=== PATIENT | female | born 1995 | race African-American/Black ===

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

== ENCOUNTER 2017-09-30 21:09 | Emergency (ER) | payer BC ==
[~2017-09-30] VITALS: Ht 157.5 cm; Wt 60.8 kg
[~2017-09-30 21:09] MED LIST changes: +BENADRYL25 M3 PO; +PREDNISONE20 MG ORAL
[2017-09-30] MEDS ORDERED: Sodium Chloride 500ML 500 ML IV ONE (21:22)
[2017-09-30] MEDS ORDERED: Morphine Sulfate 4mg/ml Inj IVP ONE (21:30)
[2017-09-30 21:58] LABS: BILIRUBIN, URINE NEGATIVE (NEGATIVE); GLUCOSE, URINE (UA) NEGATIVE (NEGATIVE); KETONES,URINE 1+ (NEGATIVE); LEUKOCYTE ESTERASE ,URINE 1+ (NEGATIVE); NITRITE,URINE NEGATIVE (NEGATIVE); PH,URINE 7 (4.5-8.0); PROTEIN,URINE 4+ (NEGATIVE); UROBILINOGEN,URINE NORMAL MG/DL (0.0-1.0)
[2017-09-30 22:00] LABS: APPEARANCE,URINE SLIGHTLY CLOUDY; COLOR,URINE RED
[2017-09-30 22:02] LABS: BASOPHILS % (AUTO) 1.1 % (0.0-2.0); EOSINOPHILS % (AUTO) 3.6 % (0.0-3.0); HEMATOCRIT 38.4 % (37.0-47.0); HEMOGLOBIN 12.2 G/DL (12.0-16.0); LYMPHOCYTES % (AUTO) 29.6 % (20.0-45.0); MEAN CORPUSCULAR VOLUME 88 FL (80-99); MONOCYTES % (AUTO) 12.1 % (1.0-10.0); NEUTROPHILS % (AUTO) 53.6 % (45.0-75.0); PLATELET COUNT 235 K/UL (150-450); RED BLOOD COUNT 4.38 M/UL (4.20-5.40); RED CELL DISTRIBUTION WIDTH 11.5 % (11.6-14.8); WHITE BLOOD COUNT 8.7 K/UL (4.8-10.8)
[2017-09-30 22:05] LABS: ANION GAP 8 mmol/L (5-15); BLOOD UREA NITROGEN 11 mg/dL (7-18); CALCIUM 7.8 MG/DL (8.5-10.1); CARBON DIOXIDE 27 MMOL/L (21-32); CHLORIDE 103 MMOL/L (98-107); CREATININE 0.6 MG/DL (0.55-1.30); POTASSIUM 3.8 MMOL/L (3.5-5.1); SODIUM 137 MMOL/L (136-145)
[2017-09-30 22:10] LABS: ALANINE AMINOTRANSFERASE 68 U/L (12-78); ALBUMIN 3.8 G/DL (3.4-5.0); ALBUMIN/GLOBULIN RATIO 1.2 (1.0-2.7); ALKALINE PHOSPHATASE 63 U/L (46-116); ASPARTATE AMINO TRANSFERASE 31 U/L (15-37); BILIRUBIN,TOTAL 0.4 MG/DL (0.2-1.0)
[2017-09-30] MEDS ORDERED: ACETAMINOPHEN-1 EAC1 ORAL (22:47)
[2017-09-30 22:55] VITALS: BP 122/75
--- NOTE | 2017-09-30 23:08 | Emergency Room Report ---
History of Present Illness General Chief Complaint: Complications Source: Patient Present Illness HPI 21-year-old female presents ED any abdominal pain and vaginal bleeding. States she is approximately 7 weeks . Had ultrasound done last week by her OB/ BLOCK BREAKER OPERATOR which confirmed a blighted ovum. Patient was scheduled to followup with her SHANK BURNISHER tomorrow. States she had increased abdominal pain vaginal bleeding starting today. Pain is a 5/10, sharp, nonradiating. Denies any nausea or vomiting. No other aggravating or leading factors. Denies any other associated symptoms Allergies: Uncoded Allergies: CITRUS (Adverse Reaction, Unknown, hives, 09/30/17) Patient History Past Medical History: none Past Surgical History: none Pertinent Family History: none Social History: Denies: smoking, alcohol use, drug use Last Menstrual Period: jun 2017 Now: Yes - 7 weeks : 2 Para: 0 Immunizations: UTD Reviewed Nursing Documentation: PMH: Agreed, PSxH: Agreed Nursing Documentation-PMH Past Medical History: No Stated History Review of Systems All Other Systems: negative except mentioned in HPI Physical Exam Vital Signs Date Time Temp Pulse Resp B/P (MAP) Pulse Ox O2 Delivery O2 Flow Rate FiO2 09/30/17 21:12 98.1 76 16 122/75 95 Room Air Sp02 EP Interpretation: reviewed, normal General Appearance: no apparent distress, alert, GCS 15, non-toxic Head: normocephalic, atraumatic Eyes: bilateral eye normal inspection, bilateral eye PERRL ENT: hearing grossly normal, normal pharynx, no angioedema, normal voice Neck: full range of motion, supple/symm/no masses Respiratory: chest non-tender, lungs clear, normal breath sounds, speaking full sentences Cardiovascular #1: regular rate, rhythm, no edema Cardiovascular #2: 2+ carotid (R), 2+ carotid (L), 2+ radial (R), 2+ radial (L) , 2+ dorsalis pedis (R), 2+ dorsalis pedis (L) Gastrointestinal: normal bowel sounds, non tender, soft, non-distended, no guarding, no rebound Rectal: deferred Genitourinary: normal inspection, no CVA tenderness Musculoskeletal: back normal, gait/station normal, normal range of motion, non- tender Neurologic: alert, oriented x3, responsive, motor strength/tone normal, sensory intact, speech normal Psychiatric: judgement/insight normal, memory normal, mood/affect normal, no suicidal/homicidal ideation Reflexes: 3+ bicep (R), 3+ bicep (L), 3+ tricep (R), 3+ tricep (L), 3+ knee (R) , 3+ knee (L) Skin: normal color, no rash, warm/dry, well hydrated Lymphatic: no adenopathy Medical Decision Making Diagnostic Impression: Primary Impression: Miscarriage ER Course Hospital Course 21-year-old F presents to ED complaining of vaginal bleeding. approxiamtely 7 weeks pregant Differential diagnoses include: gastrits, gastroenterits, ectopic , ovarian torsion/cyst, UTI Clinical course Patient placed on stretcher in ED. After initial history and physical I ordered labs, IV fluids and OB ultrasound. Labs-no leukocytosis, electrolytes okay, Hb/HCt stable, beta hCG > 8000 OB ultrasound- no IUP detected, heterogeneous material consistent with retained products noted Clinically, findings consistent with miscarriage. Discussed findings with patient. recommend close followup with OBGYN Diagnosis - miscarriage Stable and discharged to home with Rx Tylenol #3. Followup with PMD/SHANK BURNISHER. Return to ED if symptoms recur or worsen Labs Test 09/30/17 21:25 09/30/17 21:30 Urine Color Red Urine Appearance Slightly cloudy Urine pH 7 (4.5-8.0) Urine Specific [place] 1.015 (1.005-1.035) Urine Protein 4+ (NEGATIVE) Urine Glucose (UA) Negative (NEGATIVE) Urine Ketones 1+ (NEGATIVE) Urine Occult Blood 5+ (NEGATIVE) Urine Nitrite Negative (NEGATIVE) Urine Bilirubin Negative (NEGATIVE) Urine Urobilinogen Normal MG/DL (0.0-1.0) Urine Leukocyte Esterase 1+ (NEGATIVE) Urine RBC Tntc /HPF (0 - 2) Urine WBC 2-4 /HPF (0 - 2) Urine Squamous Epithelial Cells Few /LPF (NONE/OCC) Urine Bacteria Few /HPF (NONE) White Blood Count 8.7 K/UL (4.8-10.8) Red Blood Count 4.38 M/UL (4.20-5.40) Hemoglobin 12.2 G/DL (12.0-16.0) Hematocrit 38.4 % (37.0-47.0) Mean Corpuscular Volume 88 FL (80-99) Mean Corpuscular Hemoglobin 28.0 PG (27.0-31.0) Mean Corpuscular Hemoglobin Concent 31.9 G/DL (32.0-36.0) Red Cell Distribution Width 11.5 % (11.6-14.8) Platelet Count 235 K/UL (150-450) Mean Platelet Volume 8.3 FL (6.5-10.1) Neutrophils (%) (Auto) 53.6 % (45.0-75.0) Lymphocytes (%) (Auto) 29.6 % (20.0-45.0) Monocytes (%) (Auto) 12.1 % (1.0-10.0) Eosinophils (%) (Auto) 3.6 % (0.0-3.0) Basophils (%) (Auto) 1.1 % (0.0-2.0) Sodium Level 137 MMOL/L (136-145) Potassium Level 3.8 MMOL/L (3.5-5.1) Chloride Level 103 MMOL/L (98-107) Carbon Dioxide Level 27 MMOL/L (21-32) Anion Gap 8 mmol/L (5-15) Blood Urea Nitrogen 11 mg/dL (7-18) Creatinine 0.6 MG/DL (0.55-1.30) Estimat Glomerular Filtration Rate > 60 mL/min (>60) Glucose Level 97 MG/DL (74-106) Calcium Level 7.8 MG/DL (8.5-10.1) Total Bilirubin 0.4 MG/DL (0.2-1.0) Aspartate Amino Transf (AST/SGOT) 31 U/L (15-37) Alanine Aminotransferase (ALT/SGPT) 68 U/L (12-78) Alkaline Phosphatase 63 U/L (46-116) Total Protein 7.0 G/DL (6.4-8.2) Albumin 3.8 G/DL (3.4-5.0) Globulin 3.2 g/dL Albumin/Globulin Ratio 1.2 (1.0-2.7) Lipase 84 U/L (73-393) Human Chorionic Gonadotropin, Quant 8973 mIU/mL (1-6) CT/MRI/US Diagnostic Results CT/MRI/US Diagnostic Results : Imaging Test Ordered: OB US Impression no IUP. empty gestational sac. possible retained products Last Vital Signs Date Time Temp Pulse Resp B/P (MAP) Pulse Ox O2 Delivery O2 Flow Rate FiO2 09/30/17 22:55 98.1 16 122/75 95 Room Air 09/30/17 21:12 76 Status: improved Disposition: HOME, SELF-CARE Condition: Stable Scripts Acetaminophen With Codeine (T#3) (TYLENOL #3 TAB*) Y Tab 1 TAB ORAL Q8H Y for For Pain, #20 TAB Prov: ROSY LOWE M.D. 09/30/17 Patient Instructions: Miscarriage, [id number] ROSY LOWE M.D. Sep 30, 2017 23:08
--- NOTE | 2017-10-01 11:24 | Diagnostic Imaging Report ---
Indication: Positive home test. Bleeding. LMP 07/07/2017. Beta-HCG 8973. Technique: Grayscale and duplex Doppler imaging of the pelvis performed utilizing a transabdominal scan and endovaginal scan. Comparison: None Findings: Uterus measures 8.9 x 4 x 3.8 cm. Low in the uterus there is a well-circumscribed, anechoic structure most likely representing a gestational sac. No embryo or pole is noted within the gestational sac. Some additional heterogeneous echogenic structures are noted within the endometrial canal which may represent products of conception. The right ovary measures 3.9 x 3.3 x 1.8 cm/12 mL. The left ovary measures 2.9 x 2.5 x 1 cm/4 mL. Vascular flow to the bilateral ovaries is documented. No evidence to suggest ovarian torsion at this time. There is a small amount of free pelvic fluid. Impression: Gestational sac abnormally low in the uterus with no identifiable embryo. Findings are concerning for an embryonic . Short-term interval repeat ultrasound and beta hCG recommended. Close FIBER LOCKING SUPERVISOR follow-up recommended. This corresponds with the preliminary report issued by the imaging technologist and clinical plan documented by the treating ER physician in the electronic medical record.
== END 2017-09-30 22:55 | disposition home or self-care (01) ==
LOC: EMR 21:25
DX: O03.9 Complete or unspecified spontaneous abortion without complication (principal)
CPT/HCPCS: 36415; 76830; 76856; 80053; 81003; 83690; 84702; 85025; 96361; 96374; 99284; J2270; J7040

== ENCOUNTER 2017-11-18 22:56 | Emergency (ER) | payer BC ==
[~2017-11-18] VITALS: Ht 157.5 cm; Wt 59.0 kg
[~2017-11-18 22:56] MED LIST changes: +ACETAMINOPHEN-1 EAC1 ORAL
--- NOTE | 2017-11-18 23:05 | Emergency Room Report ---
History of Present Illness General Chief Complaint: To Be Triaged Present Illness HPI 21YOF with pain to right wrist after FOOSH out of bed 4 days prior C/o pain palmar aspect radial side of risk deformity that is "uncomfortable" when touched Denies Reduced ROM to wrist, pain to anywhere else Denies any other trauma Denies previous injury to wrist Allergies: Uncoded Allergies: CITRUS (Adverse Reaction, Unknown, hives, 09/30/17) Patient History Past Medical History: none Past Surgical History: none Pertinent Family History: none Social History: Denies: smoking, alcohol use, drug use Now: No Immunizations: UTD Reviewed Nursing Documentation: PMH: Agreed, PSxH: Agreed Review of Systems All Other Systems: negative except mentioned in HPI Physical Exam Sp02 EP Interpretation: reviewed, normal General Appearance: normal inspection, well appearing, no apparent distress, alert, GCS 15, non-toxic Head: normocephalic, atraumatic Eyes: bilateral eye PERRL, bilateral eye EOMI ENT: normal ENT inspection, hearing grossly normal, normal pharynx, no angioedema, normal voice, TMs + canals normal, uvula midline, moist mucus membranes Neck: normal inspection, full range of motion, supple, thyroid normal, no meningismus, no bony tend Respiratory: normal inspection, lungs clear, normal breath sounds, no rhonchi, no respiratory distress, no retraction, no accessory muscle use, no wheezing, speaking full sentences Cardiovascular #1: regular rate, rhythm, no edema, no JVD, normal capillary refill Gastrointestinal: normal inspection, normal bowel sounds, non tender, soft, no mass, no peritonitis, non-distended, no guarding, no hernia, no pulsatile mass Genitourinary: no CVA tenderness Musculoskeletal: normal inspection, back normal, normal range of motion, no calf tenderness, pelvis stable, Alma's Sign negative, other - Right hand: palmar wrist mild deformity distal radius with ttp. Neurologic: normal inspection, alert, oriented x3, responsive, wad compressor operator adjuster III-XII nml as tested, motor strength/tone normal, cerebellar normal, normal gait, speech normal Psychiatric: normal inspection, judgement/insight normal, mood/affect normal, no suicidal/homicidal ideation, no delusions Skin: normal inspection, normal color, no rash Lymphatic: normal inspection, no adenopathy Procedures Splinting Splinting : Consent: Verbal Pre-Made Type: metal Splint: volar Pre-Proc Neuro Vasc Exam: normal Post-Proc Neuro Vasc Exam: normal Patient Tolerated: Well Complications: None Medical Decision Making Diagnostic Impression: Primary Impression: Right wrist pain ER Course Right wrist pain s/p trumatic fall 4 days ago Xrays: distal radius fx to radial head, no dislocation Volar wrist splint applied Advised RICE, tylenol, PMD referral to Ortho ER course: Patient has remained stable during ED stay. Disposition: Patient is to be discharged to home. Prescriptions given are tylenol Patient is instructed to follow up with their primary care doctor within 5 days. Patient is instructed to follow up with ortho in 1 week Strict return precautions discussed with patient such as fever, chills, worsening/severe pain, nausea, vomiting, which may indicate severe illness. Patient verbalizes understanding and agrees with plan. Please note that this Emergency Department Report was dictated using [employer] grader technology software, occasionally this can lead to erroneous entry secondary to interpretation by the dictation equipment Other X-Ray Diagnostic Results Other X-Ray Diagnostic Results : X-Ray ordered: Right wrist # of Views/Limited Vs Complete: 3 View Indication: Pain EP Interpretation: Yes Interpretation: no dislocation, no soft tissue swelling, other - distal radial head fx Impression: Other - fx Electronically Signed by: Dr Parvez Doe MD Status: improved Disposition: HOME, SELF-CARE Scripts Ibuprofen* (MOTRIN*) 600 Mg Tablet 600 MG ORAL THREE TIMES A DAY for wrist pain for 7 Days, #30 TAB 0 Refills Prov: PARVEZ DOE M.D. 11/19/17 PARVEZ DOE M.D. Nov 18, 2017 23:05
[2017-11-18 23:26] VITALS: BP 109/52
[2017-11-19] MEDS ORDERED: IBUPROFEN600 MG ORAL (00:32)
[2017-11-19 00:35] VITALS: BP 109/52
--- NOTE | 2017-11-19 09:30 | Diagnostic Imaging Report ---
Clinical Indication:Right wrist pain, status post fall Technique: 3 views of the right wrist Comparison: None Findings: Very slight cortical irregularity of the articular surface of the distal radius on the oblique view, suspect artifactual due to overlying bone. No other evidence of fracture. No dislocations. The joint spaces are preserved. Impression: Doubt but cannot completely exclude distal radial fracture. Correlate with clinical findings, consider follow-up radiographs as indicated
== END 2017-11-19 00:35 | disposition home or self-care (01) ==
LOC: EMR 23:16
DX: M25.531 Pain in right wrist (principal)
CPT/HCPCS: 29125; 99283

== ENCOUNTER 2017-12-04 09:43 | Emergency (ER) | payer BC ==
[~2017-12-04] VITALS: Ht 157.5 cm; Wt 59.0 kg
[~2017-12-04 09:43] MED LIST changes: +IBUPROFEN600 MG ORAL
[2017-12-04 10:50] VITALS: BP 114/69
--- NOTE | 2017-12-06 21:08 | Emergency Room Report ---
History of Present Illness General Chief Complaint: Wound Recheck/Suture Removal Source: Patient Present Illness HPI 22-year-old female presents ED for evaluation. Patient is here for suture removal. Had laceration to the bottom of her foot on 11/21. Repaired at another hospital. Was most of the stitches removed 1 week later but did not come back. Here for suture removal. Denies any pain. Denies any fevers chills. It is well-healed. No other aggravating or relieving factors. Denies any other associated symptoms Allergies: Uncoded Allergies: CITRUS (Adverse Reaction, Unknown, hives, 09/30/17) Patient History Past Medical History: none Past Surgical History: none Pertinent Family History: none Social History: Denies: smoking, alcohol use, drug use Last Menstrual Period: 12/03/17 Now: No Immunizations: UTD Reviewed Nursing Documentation: PMH: Agreed, PSxH: Agreed Nursing Documentation-PMH Past Medical History: No Stated History Review of Systems All Other Systems: negative except mentioned in HPI Physical Exam Vital Signs Date Time Temp Pulse Resp B/P (MAP) Pulse Ox O2 Delivery O2 Flow Rate FiO2 12/04/17 10:06 97.7 76 15 114/69 98 Room Air 97.7 Sp02 EP Interpretation: reviewed, normal General Appearance: no apparent distress, alert, GCS 15, non-toxic Head: normocephalic, atraumatic Eyes: bilateral eye normal inspection, bilateral eye PERRL ENT: normal ENT inspection Neck: normal inspection Respiratory: normal inspection Cardiovascular #1: normal inspection Gastrointestinal: normal inspection Rectal: deferred Genitourinary: no CVA tenderness Musculoskeletal: normal inspection Neurologic: alert, oriented x3, responsive, motor strength/tone normal, sensory intact, speech normal Psychiatric: judgement/insight normal, memory normal, mood/affect normal, no suicidal/homicidal ideation Skin: other - laceration well healed. sutures in place Lymphatic: normal inspection Medical Decision Making Diagnostic Impression: Primary Impression: Encounter for removal of sutures ER Course Patient presents to the emergency department today for suture removal. patient' s wound appears well-healed, and sutures are ready to be removed today. Using sterile technique the sutures were removed patient tolerated procedure well without any difficulty. Patient was given advice in how to care for the wound patient is advised followup with his private care doctor in 2-3 days and return to emergency room for any worsening conditions as needed Last Vital Signs Date Time Temp Pulse Resp B/P (MAP) Pulse Ox O2 Delivery O2 Flow Rate FiO2 12/04/17 10:50 97.7 15 114/69 98 Room Air 97.7 12/04/17 10:06 76 Status: improved Disposition: HOME, SELF-CARE Condition: Stable Referrals: TIAGOSUKHDEEP [facility],REFERRING (PCP) Patient Instructions: Suture Removal, Care After ROSY LOWE M.D. Dec 06, 2017 21:08
== END 2017-12-04 10:50 | disposition home or self-care (01) ==
LOC: EMR 10:47
DX: S91.311D Laceration without foreign body, right foot, subsequent encounter (principal); X58.XXXD Exposure to other specified factors, subsequent encounter; Z48.02 Encounter for removal of sutures
CPT/HCPCS: 99281

== ENCOUNTER 2019-12-24 09:31 | Emergency (ER) | payer BC, OTHER ==
[~2019-12-24] VITALS: Ht 157.5 cm; Wt 37.6 kg
--- NOTE | 2019-12-24 09:50 | Emergency Room Report ---
History of Present Illness General Chief Complaint: Multiple Trauma/Fall Source: Patient Present Illness HPI Disclaimer: Please note that this report is being documented using DRAGON technology. This can lead to erroneous entry secondary to incorrect interpretation by the dictating instrument. HPI: 24-year-old female presents for evaluation of right ankle pain and swelling. She is 22 weeks walking down the stairs yesterday missed the last step causing a twisting motion in her ankle. Did not hit her abdomen. Denies head injury. Noted pain and swelling in the right ankle and difficulty bearing weight. Difficulty with plantar flexion and dorsiflexion. Applied ice, kept elevated but no significant improvement. Difficulty walking this morning. She denies any abdominal pain, vaginal bleeding, leakage of fluids. Reports good movements. Denies any other injury or discomfort at this time. PMH: PSH: Reviewed Allergies: No medical allergies Social Hx: Denies Allergies: Uncoded Allergies: CITRUS (Adverse Reaction, Unknown, hives, 09/30/17) COVID-19 Screening Contact w/high risk pt: No Recent Travel to affected area: No Experienced COVID-19 symptoms?: No Patient History Last Menstrual Period: June 2019 Now: Yes Nursing Documentation-PMH Past Medical History: No Stated History Review of Systems All Other Systems: negative except mentioned in HPI Physical Exam Vital Signs Date Time Temp Pulse Resp B/P (MAP) Pulse Ox O2 Delivery O2 Flow Rate FiO2 12/24/19 09:36 98.2 108 18 130/59 (82) 96 Room Air General: Awake and alert, no acute distress HEENT: NC/AT. EOMI. Resp: Normal work of breathing Abdomen: Gravid abdomen, nontender Skin: Intact. No abrasions, laceration or rash over the exposed skin MSK: Normal tone and bulk. Moving all extremities. Edema over the right ankle over the medial malleolus. Tender to palpation of the anterior and posterior segment. No midfoot tenderness. Difficulty with dorsiflexion and plantarflexion. Neuro: Awake and alert. Mentating appropriately Medical Decision Making Diagnostic Impression: Primary Impression: Ankle sprain ER Course 24-year-old female presents for evaluation of right ankle pain and swelling after a twisting injury yesterday. There was no head injury, no abdominal injury during the fall. X-rays of the foot and ankle do not show acute fracture or dislocation. Likely a sprain. Patient was placed in an Sudeep wrap and given crutches for stability. We will follow-up on an outpatient basis with her PMD and PORTRAIT CONSULTANT. Discussed reasons to return to the emergency department. She understands agrees to treatment plan. Other X-Ray Diagnostic Results Other X-Ray Diagnostic Results #1: X-Ray ordered: Right ankle # of Views/Limited Vs Complete: Complete Indication: Pain EP Interpretation: Yes Interpretation: no dislocation, no fractures, nonspecific bowel gas, other - Soft tissue swelling Impression: No acute disease Electronically Signed by: Electronically signed by Dr. Faustino Ling Other X-Ray Diagnostic Results #2: X-Ray ordered: Right foot # of Views/Limited Vs Complete: Complete Indication: Pain EP Interpretation: Yes Interpretation: no dislocation, no soft tissue swelling, no fractures, nonspecific bowel gas Impression: No acute disease Electronically Signed by: Electronically signed by Dr. Faustino Ling Last Vital Signs Date Time Temp Pulse Resp B/P (MAP) Pulse Ox O2 Delivery O2 Flow Rate FiO2 12/24/19 09:36 98.2 108 18 130/59 (82) 96 Room Air Disposition: HOME, SELF-CARE Condition: Stable Scripts Acetaminophen* (TYLENOL EXTRA STRENGTH*) 500 Mg Tablet 500 MG ORAL Q8H PRN for Prn Headache/Temp > 101, #30 TAB 0 Refills Prov: Faustino Ling MD 12/24/19 Referrals: NON PHYSICIAN (PCP) Faustino Ling MD Dec 24, 2019 09:50
--- NOTE | 2019-12-24 10:21 | NUR ---
ED Nurse Note:pt. had mechanical fall yesterday and c/o right ankle pain and swelling, x-ray was done
[2019-12-24] MEDS ORDERED: TYLENOL EXTRA500 MG ORAL (10:41)
[2019-12-24 10:55] VITALS: BP 130/59
--- NOTE | 2019-12-24 10:55 | NUR ---
ER DISCHARGE NOTE:amanda wrap and cratchies provided Patient is cleared to be discharged per ERMD, pt is aox4, on room air, with stable vital signs. pt was given dc and prescription instructions, pt was able to verbalize understanding, pt is able to ambulate with steady gait. pt took all belongings.
--- NOTE | 2019-12-24 11:20 | Diagnostic Imaging Report ---
Indication: Foot Pain Comparison: None Findings: 3 views of the right foot were obtained. No acute fractures, malalignment, erosions or periostitis are identified. Impression: No acute findings.
--- NOTE | 2019-12-24 11:20 | Diagnostic Imaging Report ---
Indication: Pain right ankle Comparison: None Findings: 3 views of the right ankle obtained. No acute fracture, malalignment, periostitis, or osteochondral defects are identified. Soft tissues are unremarkable.. Impression: No acute findings
== END 2019-12-24 10:55 | disposition home or self-care (01) ==
LOC: EMR 09:48
DX: O9A.212 Injury, poisoning and certain other consequences of external causes complicating pregnancy, second trimester (principal); S93.401A Sprain of unspecified ligament of right ankle, initial encounter; W10.9XXA Fall (on) (from) unspecified stairs and steps, initial encounter; Y93.01 Activity, walking, marching and hiking; Y92.9 Unspecified place or not applicable; Z3A.22 22 weeks gestation of pregnancy
CPT/HCPCS: 99284